=== PATIENT | female | born 1950 | race Caucasian/White ===

== ENCOUNTER 2025-02-17 18:19 | Emergency (ER) | payer MEDICARE, SELFPAY ==
[2025-02-17 18:30] VITALS: BP 157/72; PULSE 92; RESP 16; TEMP 36.6; O2SAT 97
--- NOTE | 2025-02-17 18:30 | ED_ITS ---
HPI - Skin/Abscess/Foreign Bdy General Chief complaint: Skin/Abscess/Foreign Body Stated complaint: Infected Mckinney Time Seen by Provider: 02/17/25 18:21 patient presents to the [facility] accompanied by spouse with complaint of increased redness surrounding scratch / wound to left mckinney that she noticed about 3 days ago. Patient reports the scratch occurred roughly about 1 year ago and has never healed. Patient reports she does have some minimal swelling to the ankle on the left side and this is not changed. Denies any pain or drainage from the scratch or redness area. Denies fever, chills body aches, numbness, or tingling. Related Data Home Medications ?Medication ?Instructions ?Recorded ?Confirmed ?Last Taken ?Type amitriptyline 50 mg tablet mg 02/17/25 Unknown History amlodipine 5 mg tablet mg 02/17/25 Unknown History celecoxib 100 mg capsule mg 02/17/25 Unknown History esomeprazole magnesium 20 mg mg 02/17/25 Unknown History capsule,delayed release fluticasone propionate 50 intranasal 02/17/25 Unknown History mcg/actuation nasal spray,suspension lovastatin 40 mg tablet mg 02/17/25 Unknown History potassium chloride 10 mEq meq PO 02/17/25 Unknown History tablet,extended release triamterene 37.5 tablet 02/17/25 Unknown History mg-hydrochlorothiazide 25 mg tablet Allergies Allergy/AdvReac Type Severity Reaction Status Date / Time No Known Allergies Allergy Verified 02/17/25 18:35 Review of Systems Constitutional: Constitutional: Reports as per HPI, Denies chills, Denies fatigue, Denies fever(s) and Denies weakness Eyes: Eyes: Reports no additional eye complaints Cardiovascular: Cardiovascular: Reports no additional cardiovascular complaints Respiratory: Respiratory: Reports no additional respiratory complaints Gastrointestinal: Gastrointestinal: Reports no additional gastrointestinal complaints Genitourinary: Genitourinary: Reports no additional female genitourinary complaints Musculoskeletal: Musculoskeletal: Reports as per HPI Comments: Chronic swelling left ankle Integumentary/Breasts: Skin/Breast: Reports as per HPI, Reports erythema and Denies rash Comments: nonhealing wound left mckinney Neurologic: Reports as per HPI, Denies headache(s), Denies focal weakness, Denies numbness and Denies weakness Psychiatric: Psychiatric: Reports no additional psychiatric complaints Endocrine: Endocrine: Reports no additional endocrine complaints Hematologic/Lymphatic: Hematologic/Lymphatic: Reports no additional hematologic/lymphatic complaints Allergic/Immunologic: Allergic/Immunologic: Reports no additional all ergic/immunologic complaints Exam Const: General: healthy appearing and no acute distress; No ill appearing Nutritional Appearance: well nourished Orientation/consciousness: patient oriented x3 Limitations: no limitations Resp: Effort & Inspection: normal respiratory effort Auscultation: clear to auscultation bilaterally Cardio: Rate: regular rate Rhythm: regular rhythm Heart sounds: no murmurs Skin: General skin exam: normal color Rashes: no rashes Wounds: wounds noted Other: there is small abrasion to left mckinney with surrounding erythema 2 cm in width and 4 cm in with slight streaking toward foot. Posterior tibial and pedal pulses strong and palpable. Minimal swelling noted to left ankle top of foot. No calf pain or swelling. Homans sign negative Neuro: General: patient oriented x3 and moves all extremities Speech: normal speech Gait exam (Neuro): Normal gait present Extrem: Left lower extremity: lower leg Details: erythema and abrasion; no tenderness Psych: Mental Status: mental status grossly normal Affect: normal affect Attitude: cooperative Course Course Level of Care: Express Care Visit MDM - Skin/Abscess/Foreign Bdy MDM Narrative Medical decision making narrative: Discharge instructions reviewed with patient, as well as provided in writing per nursing staff. The instructions also include specific and strict return/GO TO THE ER as well as f/u information. All questions have been answered, and the patient deny any further questions with discharge and discharge plan. Differential Diagnosis Differential diagnosis: Likely cellulitis, eczema, insect bites, impetigo and contact dermatitis Medical Records Attestation: I reviewed the patient's medical records. Discharge Plan Discharge Clinical Impression: Cellulitis Patient Disposition: Home Condition: Stable Instructions: Antibiotic Form, Cellulitis (ED) Additional Instructions: Clean with soap and water only; Avoid using alcohol and peroxide. Elevate the affected area if possible Alternate Tylenol/ibuprofen for as needed for pain Acetaminophen(Tylenol) 650- 1000mg every 4-6hours with max of 4000mg/day. Nonsteroidal anti-inflammatory agent (NSAIDs-ibuprofen): 400mg every 4-6hours with max 2400mg/day Take antibiotic until it's gone. Please schedule a follow up visit with your personal physician for further evaluation and treatment within 3-5days OR if your symptoms persist, change or worsen significantly before you can contact your personal physician then please, without delay, go to the emergency department for further evaluation. Patient Language: Persian Prescriptions: New doxycycline monohydrate 100 mg capsule 100 mg PO BID Qty: 20 0RF No Action lovastatin 40 mg tablet potassium chloride 10 mEq tablet extended release PO amlodipine 5 mg tablet amitriptyline 50 mg tablet triamterene-hydrochlorothiazid 37.5-25 mg tablet celecoxib 100 mg capsule fluticasone propionate 50 mcg/actuation spray,suspension INTRANASAL esomeprazole magnesium 20 mg capsule,delayed release(DR/EC) Follow-up/Referrals: Teri Hwang RN [Primary Care Provider] - Time of Disposition: 18:41
== END 2025-02-17 18:42 | disposition home or self-care (01) ==
PROVIDERS: Emergency Provider Nurse Practitioner Family
DX: L03.116 Cellulitis of left lower limb (principal)
CPT/HCPCS: 99203; G0463